=== PATIENT | male | born 1965 ===

== ENCOUNTER 2022-05-30 13:45 | Emergency (ER) | payer SELFPAY ==
--- NOTE | 2022-05-30 15:19 | Emergency Department Report ---
ED General Adult HPI - General Chief complaint: Urogenital-Male Stated complaint: PENIS BLEEDING Time Seen by Provider: 05/30/22 15:09 Source: patient, family, RN notes reviewed Mode of arrival: Ambulatory Limitations: No Limitations - History of Present Illness Initial comments: The patient was evaluated in the emergency department for symptoms described in the history of present illness. He/she was evaluated in the context of the global COVID-19 pandemic, which necessitated consideration that the patient might be at risk for infection with the virus that causes COVID-19. Institutional protocols and algorithms that pertain to the evaluation of patients at risk for COVID-19 are in a state of rapid change based on information released by regulatory bodies including the CDC and federal and state organizations. These policies and algorithms were followed during the patient's care in the emergency department. Please note that these policies, procedures and recommendations changed on a rapid basis. During the history and physical examination, I am chaperoned by nurse Alejandra Beasley This is a 57-year-old gentleman, who is not known to myself previously, who reports that he is medically healthy, with no chronic medical conditions. The patient presents to the ER today with a complaint of traumatic distal penis injury. The patient reports that he was in his usual state of health today, with no complaints, when he was participating in vigorous sexual penetrative intercourse with his . He reports that during the aforementioned episode of intercourse, he feels like his penis became broken and swollen. This is at the distal end. He has blood in the urine. It is painful to pee. He has difficulty urinating. Prior to this event, he denies all complaints. Currently, his only complaint is distal phallic swelling, hematuria, and pain with urination. Otherwise, he denies acute complaints. -: Sudden Location: genitals Severity scale (0 -10): 10 Quality: aching Consistency: constant Improves with: rest Worsens with: other (Palpation and urination) Associated Symptoms: denies other symptoms - Related Data Previous Rx's Medication Instructions Recorded Last Taken Type Acetaminophen [Non-Aspirin Extra 500 mg PO Q6HR PRN #30 tablet 05/30/22 Unknown Rx Strength] Ibuprofen [Motrin] 600 mg PO Q8H PRN #30 tablet 05/30/22 Unknown Rx Morphine Sulfate [Morphine Sulfate 7.5 mg PO Q6HR PRN #10 tablet 05/30/22 Unknown Rx IR] Allergies Allergy/AdvReac Type Severity Reaction Status Date / Time plastic Allergy Swelling Uncoded 05/30/22 14:14 styrofoam Allergy Swelling Uncoded 05/30/22 14:14 ED Review of Systems ROS: Stated complaint: PENIS BLEEDING Other details as noted in HPI Comment: All other systems reviewed and negative Genitourinary: dysuria, hematuria, other (Phallic pain, swelling, bleeding from the urethral meatus). denies: frequency, testicular pain, testicular mass ED Past Medical Hx - Past Medical History Previous Medical History?: No - Surgical History Past Surgical History?: No - Medications Home Medications: Home Medications Medication Instructions Recorded Confirmed Last Taken Type Acetaminophen [Non-Aspirin Extra 500 mg PO Q6HR PRN #30 tablet 05/30/22 Unknown Rx Strength] Ibuprofen [Motrin] 600 mg PO Q8H PRN #30 tablet 05/30/22 Unknown Rx Morphine Sulfate [Morphine Sulfate 7.5 mg PO Q6HR PRN #10 tablet 05/30/22 Unknown Rx IR] ED Physical Exam - General Limitations: No Limitations General appearance: alert, anxious, in distress - Head Head exam: Present: atraumatic, normocephalic - Eye Eye exam: Present: normal appearance, EOMI. Absent: nystagmus - ENT ENT exam: Present: normal exam, normal orophraynx, mucous membranes moist, normal external ear exam - Neck Neck exam: Present: normal inspection, full ROM. Absent: tenderness, meningismus - Respiratory Respiratory exam: Present: normal lung sounds bilaterally. Absent: respiratory distress, wheezes, rales, rhonchi, stridor, decreased breath sounds - Cardiovascular Cardiovascular Exam: Present: regular rate, normal rhythm, normal heart sounds. Absent: bradycardia, tachycardia, irregular rhythm, systolic murmur, diastolic murmur, rubs, gallop - GI/Abdominal GI/Abdominal exam: Present: soft. Absent: distended, tenderness, guarding, rebound, rigid, pulsatile mass - Rectal Rectal exam: Present: deferred - exam: Present: other (Chaperoned by Renee Beasley. Patient provides consent for external genital examination. The distal phallus is swollen, and tender. The proximal phallus is nontender. There is blood noted at the urethral meatus). Absent: normal inspection, testicular tenderness External exam: Present: other (There is normal testicular lie. There is normal cremasteric reflex. There is no testicular tenderness. There is no testicular swelling). Absent: normal external exam - Extremities Exam Extremities exam: Present: normal inspection, full ROM, normal capillary refill, other (2+ pulses noted in the bilateral upper and lower extremities. There is no palpable cord. negative Homans sign. Muscular compartments are soft. The pelvis is stable.). Absent: pedal edema, calf tenderness - Back Exam Back exam: Present: normal inspection, full ROM. Absent: tenderness, CVA tenderness (R), CVA tenderness (L), paraspinal tenderness, vertebral tenderness - Neurological Exam Neurological exam: Present: alert, oriented X3, normal gait, other (No facial droop. Tongue midline. Extraocular movements intact bilaterally. Facial sensation intact to light touch in V1, V2, V3 distribution bilaterally. 5 and a 5 strength in 4 extremities. Sensation intact to light touch in 4 extremities.). Absent: motor sensory deficit - Psychiatric Psychiatric exam: Present: anxious - Skin Skin exam: Present: warm, dry, intact, normal color. Absent: rash ED Course Vital Signs 05/30/22 05/30/22 05/30/22 14:22 14:55 16:27 Temperature 98.4 F Pulse Rate 85 67 Respiratory 20 17 17 Rate Blood Pressure 172/95 142/87 [Right] O2 Sat by Pulse 99 97 97 Oximetry O2 Sat by Pulse Oximetry [ Digit-Finger] 05/30/22 16:40 Temperature Pulse Rate Respiratory Rate Blood Pressure [Right] O2 Sat by Pulse Oximetry O2 Sat by Pulse 99 Oximetry [ Digit-Finger] - Reevaluation(s) Reevaluation #1: 05/30/22 16:24 Differential diagnosis, include but not limited to: Urethral injury, corpus cavernosum fracture, penile fracture Assessment and plan: 57-year-old gentleman, who is medically healthy, who was in their usual state of health, presenting with probable penile fracture, and blood at the urethral meatus. He has no other injuries or complaints. He has pain, swelling at the distal end of the phallus, with blood at the meatus. He is able to urinate in a minimal fashion, but reports intense pain when urinating. We will discussed with urology on-call. This hospital does not have urology on-call, so we will therefore reach out to [facility]. 05/30/22 16:37 I discussed the patient's history, physical, and clinical impression with [facility] on-call, Dr. Renee Marquez She recommends initial trial placement of either a [address] or [address] [place] Godinez catheter, if Godinez catheter can be placed successfully here in the emergency department, patient may be discharged with a Godinez catheter to leg bag, and close follow-up with [facility] next week, phone #[phone]. I am currently awaiting 12 [address] [place] Godinez catheter. Nursing team to coordinate with central supply to obtain 12 [address] Godinez catheter. Urojet is ordered. I discussed this with the patient. He articulates understanding 05/30/22 17:[address] Godinez catheter placed without difficulty. Please see procedure note. Patient draining clear yellow urine. Godinez catheter is attached to leg bag. He is in no acute distress. He endorses readiness for discharge. All questions are answered. Return precautions are reviewed. - Catheter Insertion (Urinary) Indications: other Prophylactic Antibiotics Given: No Bladder Scan/US before Catherization: No Estimated Amount of Urine (mls): 200 Preparation: Providone-Iodine Type of Catheter Inserted: coude tip, other (12 [place] Helenian) Catheter Balloon Size (mls): 10 Topical Anesthesia Used: Yes Results: successfully catherized-immediate flow Patient Tolerated Procedure: well Complications: none - Pulse Oximetry Interpretation Digit-Finger Initial Pulse Oximetry Readin O2 Sat by Pulse Oximetry: 99 Actions Taken: none ED Medical Decision Making - Lab Data Vital Signs 05/30/22 05/30/22 05/30/22 14:22 14:55 16:27 Temperature 98.4 F Pulse Rate 85 67 Respiratory 20 17 17 Rate Blood Pressure 172/95 142/87 [Right] O2 Sat by Pulse 99 97 97 Oximetry Critical care attestation.: If time is entered above; I have spent that time in minutes in the direct care of this critically ill patient, excluding procedure time. ED Disposition Clinical Impression: Penis injury Qualifiers: Encounter type: initial encounter Qualified Code(s): S39.94XA - Unspecified injury of external genitals, initial encounter Disposition: 01 HOME / SELF CARE / HOMELESS Is pt being admited?: No Does the pt Need Aspirin: No Condition: Good Additional Instructions: Please keep the Godinez catheter in place. Avoid sex, sexual activities, heavy lifting. Take the prescribed medications as needed for physical pain. Follow-up with a urologist within the next 3 to 5 days. [facility] is a local urology practice. Patient may also call up [facility] at [phone]. If calling this number, indicate that you are a patient seen in our emergency room, and our case is discussed with the covering urologist, Dr. Kimberley Marquez MD, MS. It is recommended that you follow-up with a urologist within the next 3 to 5 days, and if calling [facility], let them know that we have discussed your case with the aforementioned urologist, and we would like you to have very close outpatient follow-up with urology. Therefore, [facility] should make every attempt to overbook your appointment for the aforementioned timeframe. Please return to the emergency room right away with new pain, worsened pain, migration of pain, projectile vomiting, change in mental status, confusion, inability tolerate liquid feeds, new, worsened or different symptoms not present on the initial emergency room evaluation Prescriptions: Morphine Sulfate [Morphine Sulfate IR] 7.5 mg PO Q6HR PRN #10 tablet PRN Reason: Pain , Severe (7-10) Ibuprofen [Motrin] 600 mg PO Q8H PRN #30 tablet PRN Reason: Pain Acetaminophen [Non-Aspirin Extra Strength] 500 mg PO Q6HR PRN #30 tablet PRN Reason: Pain , Severe (7-10) Referrals: [facility] [Provider Group] - 3-5 Days Forms: Work/School Release Form(ED)
[2022-05-30] MEDS ORDERED: HYDROmorphone 0.5 MG/0.5 ML INJ IM ONE (16:03)
[2022-05-30] MEDS ORDERED: ACETAMINOPHEN 325 MG TAB PO ONE (16:16)
[2022-05-30 16:47] LABS: RBC,Urine > 182.0 /HPF (0.0-6.0)
[2022-05-30 16:50] LABS: Color,Urine Amber (Yellow)
[2022-05-30] MEDS ORDERED: LIDOCAINE 2% UROJECT 10 ML JELLY UR ONE (17:00)
[2022-05-30 18:04] VITALS: BP 138/76
== END 2022-05-30 18:04 | disposition home or self-care (01) ==
LOC: ED 13:45
DX: S39.94XA Unspecified injury of external genitals, initial encounter (principal); Z88.8 Allergy status to other drugs, medicaments and biological substances; Z79.899 Other long term (current) drug therapy; X58.XXXA Exposure to other specified factors, initial encounter; Y93.89 Activity, other specified; Y92.89 Other specified places as the place of occurrence of the external cause; Y99.8 Other external cause status
CPT/HCPCS: 51702; 81001; 99283; J1170